=== PATIENT | female | born 1955 | race Caucasian/White ===

== ENCOUNTER 2020-08-03 16:20 | Outpatient (CLI) | payer MEDICARE, MEDICAID, SELFPAY ==
--- NOTE | ~2020-08-03 | US_ITS ---
EXAMINATION: US thyroid EXAM DATE: 08/03/2020 16:44 INDICATION: E04.1 Nontoxic single thyroid nodule TECHNIQUE: Multiple grayscale and Doppler images of the thyroid were obtained (by a technologist who performed the scan) and subsequently reviewed. Individual nodules and recommendations may be reporte d in accordance with TI-RADS system as designated by the 2017 ACR White Paper TI-RADS committee. The re is no prior study for comparison. FINDINGS: The right thyroid lobe measures 6.3 x 3.1 x 3.3 cm, the left measuring 6.4 x 2.7 x 2.1 cm. These dime nsions are moderately enlarged. There are multiple thyroid nodules. Otherwise the thyroid parenchyma is mildly diffusely heterogeneous. In the right thyroid lobe is the largest nodule measuring 3.7 x 3.1 x 3.6, solid (2 points), isoechoi c (1 point), wider than tall, smooth margin, without echogenic foci, category TR3 for this nodule. In the right side of the isthmus there is a nodule measuring 2.1 x 1.5 x 2.2 cm, solid (2 points), is oechoic (1 point), wider than tall, smooth margin, without echogenic foci, category TR3 for this nodu le. In the left thyroid lobe there is a nodule measuring 2.1 x 1.1 x 1.8 cm, solid (2 points), isoechoic (1 point), wider than tall, smooth margin, without echogenic foci, category TR3 for this nodule. IMPRESSION: 1. Multinodular goiter. 2. Largest right thyroid lobe nodule could be considered for ultrasound-guided biopsy. Reviewed, dictated and finalized at location A.
== END 2020-08-03 16:21 | disposition home or self-care (01) ==
PROVIDERS: PCP Internal Medicine; Visit Provider Internal Medicine
DX: E04.2 Nontoxic multinodular goiter (principal)
CPT/HCPCS: 76536

== ENCOUNTER 2020-08-16 12:52 | Outpatient (CLI) | payer MEDICARE, MEDICAID, SELFPAY ==
--- NOTE | ~2020-08-16 | US_ITS ---
EXAMINATION: US FNA w image guidance DATE: 08/16/2020 14:12 INDICATION: Nontoxic multinodular goiter TECHNIQUE: A time-out was performed to verify the patient's name, date of , and procedure to be performed . The procedure and its benefits and risks were discussed with the patient. Risks specifically discus sed included bleeding and infection. The patient understood the risks and agreed to proceed. The neck was prepped and draped in the usual sterile manner. 3 mL 1% lidocaine was used for local anesthesia . 6 passes were made with a 25G needle into the lesion. Appropriate needle location was documented with continuous sonographic guidance. The specimens were passed to the certified cytotechnologist in the room. A sterile bandage was applied. There were no immediate complications. FINDINGS: Grayscale ultrasound images demonstrate biopsy needles advanced into a heterogeneous 3.7 x 3.8 x 2.7 cm TI RADS 3 right thyroid mass.. IMPRESSION: 1. Successful ultrasound-guided fine needle aspiration of a 3.8 cm TI RADS 3 right thyroid mass. Reviewed, dictated and finalized at location A. OR OF CHIROPRACTIC IMPRESSION: 1. Successful ultrasound-guided fine needle aspiration of a 3.8 cm TI RADS 3 r ight thyroid mass.
== END 2020-08-16 12:53 | disposition home or self-care (01) ==
PROVIDERS: PCP Internal Medicine; Visit Provider Internal Medicine
DX: E04.2 Nontoxic multinodular goiter (principal)
CPT/HCPCS: 10005; 88173; 88305

== ENCOUNTER 2022-04-23 10:31 | Outpatient (CLI) | payer MEDICARE, MEDICAID, SELFPAY ==
--- NOTE | ~2022-04-23 | US_ITS ---
EXAMINATION:US venous doppler LE RT INDICATION:Leg edema TECHNIQUE: Multiple grayscale, color flow and Doppler images of the right lower extremity deep venous systems were obtained and reviewed. COMPARISON:Ultrasound dated 02/16/2016 FINDINGS: The common femoral, superficial femoral and popliteal veins demonstrate normal respiratory variation, augmentation and compressibility. Color flow is also seen within the posterior tibial, pe roneal, greater saphenous and profunda veins. IMPRESSION: 1: No lower extremity deep venous thrombosis. Reviewed, dictated and finalized at location A.
== END 2022-04-23 10:32 | disposition home or self-care (01) ==
PROVIDERS: PCP Internal Medicine; Visit Provider Internal Medicine
DX: R60.0 Localized edema (principal)
CPT/HCPCS: 93971

== ENCOUNTER 2024-03-16 10:39 | Outpatient (CLI) | payer MEDICARE, MEDICAID, SELFPAY ==
--- NOTE | ~2024-03-16 | XR_ITS ---
Clinical Indication: COPD PA and lateral views of the chest: Comparison: 03/30/2016 Findings: The lungs are clear, without evidence of focal consolidation or pleural effusion. Cardiome diastinal silhouette is stable. Prominent hilar regions are unchanged.. Bones and soft tissues are un remarkable. Impression: Stable prominent hilar regions bilaterally. No acute abnormality seen. Reviewed, dictated and finalized at location . Impression: Stable prominent hilar regions bilaterally. No acute abnormality seen.
== END 2024-03-16 10:40 | disposition home or self-care (01) ==
LOC: CHSIMG 10:42
PROVIDERS: PCP Physician Assistant; Visit Provider Physician Assistant
DX: J44.9 Chronic obstructive pulmonary disease, unspecified (principal)
CPT/HCPCS: 71046